=== PATIENT | female | born 1935 | race Caucasian/White ===

== ENCOUNTER 2024-09-10 12:09 | Outpatient (AMB) | payer MEDICARE, SELFPAY ==
[2024-09-10 12:13] VITALS: BP 148/70; PULSE 72; TEMP 37.2; O2SAT 97; BMI 24.3
--- NOTE | 2024-09-10 12:13 | AM.OFFWIN_ITS ---
Intake Vital Signs 09/10/24 12:13 Height 5 ft 3.5 in Weight 139 lb 6 oz BMI 24.3 BP 148/70 H Blood Pressure Location Lt brachial Position Sitting Pulse 72 Pulse Source Pulse Oximeter Temp 98.9 F Temp Source Oral Pulse Oximetry (%) 97 Oxygen Delivery Method Room Air Intake Visit Reasons: EP Swollen LT foot Intake Note: Patient present with left foot swelling time 1 week. 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 She reports a 1 week history of left foot redness, tenderness, and swelling. She states she had similar symptoms last year and it was quite painful but it eventually resolved on its own. She denies any trauma to foot or recent cuts/injuries. No fevers/chills. Pain with walking. Has not taken anything for this. [facility] Medical History Hypertension Social History Housing: House Patient Tobacco Use Status: Never used Tobacco e-Cigarette/Vaping Use: Never Used Second Hand Smoke Exposure: No Patient : No Current occupational status: retired Cognitive needs: No Hearing needs: No Vision needs: No Review of Systems Const All systems reviewed & are unremarkable except as noted in HPI and below Physical Exam Vital Signs: Last Vital Signs Temp 98.9 F 09/10/24 12:13 Pulse 72 09/10/24 12:13 BP 148/70 H 09/10/24 12:13 Pulse Ox 97 09/10/24 12:13 Oxygen Delivery Method Room Air 09/10/24 12:13 BMI result Body Mass Index 24.3 Const Other: mildly forgetful, HCP states this is patient's baseline General: cooperative, healthy appearing, comfortable and no acute distress Resp Effort & Inspection: normal respiratory effort Auscultation: clear to auscultation bilaterally Cardio Rate: regular rate Rhythm: regular rhythm Skin General skin exam: no rashes or lesions noted Extrem Left lower extremity: foot (erythema/tenderness left dorsal foot. no lacs or open areas) Details: normal capillary refill, tenderness Location: of the dorsal foot Location: distally and proximally, toes with normal ROM, warmth Location: of the dorsal foot Location: distally and proximally, edema Location: of the dorsal foot Location: distally and proximally and vascular exam Details: dorsalis pedis pulse present, posterior tibial pulse present and normal capillary refill Psych Appearance: grossly normal Mental Status: mental status grossly normal Speech and movement: Normal speech and movement present Assessment & Plan Assessment & Plan (1) Gout of left foot: Code(s): M10.9 - Gout, unspecified Qualifiers: Gout etiology: unspecified cause Chronicity: acute Qualified Code(s): M10.9 - Gout, unspecified Plan: Symptoms/presentation consistent with gout. Will start her on course of prednisone. We reviewed indications, use, possible side effects of medication. I also applied Antony wrap due to some swelling in the left foot. Patient can take Tylenol and elevate foot as needed for any ongoing discomfort. If she does not improve with treatment, or symptoms worsen/new symptoms develop, she can return to the clinic for further evaluation. Patient and HCP El present with her at visit both verbalized understanding and agreed to plan. Medications: New prednisone 40 mg (2 x 20 mg) PO DAILY 10 tabs 0RF 5 days M10.9 - Gout, unspecified Coding Level of Care Code Est Pt Level 4 (41937) Diagnoses Acute gout of left foot, unspecified cause M10.9 Gout etiology: unspecified cause Chronicity: acute
== END 2024-09-10 13:09 | disposition home or self-care (01) ==
PROVIDERS: PCP Internal Medicine; Visit Provider Nurse Practitioner Family
DX: M10.9 Gout, unspecified (principal)

== ENCOUNTER → 2024-09-10 12:09 | Outpatient (BNVA) | payer MEDICARE, SELFPAY | PROVIDERS: PCP Internal Medicine; Visit Provider Nurse Practitioner Family | DX: I10 Essential (primary) hypertension (principal); M10.9 Gout, unspecified | CPT/HCPCS: 99212 ==